=== PATIENT | female | born 1955 | race American Indian/Alaskan Native ===

== ENCOUNTER 2017-05-31 08:28 | Day surgery (SDC) | payer MEDICARE ==
[~2017-05-31 08:28] MED LIST: ANCEF/STERILE WATER 2 GM/20 ML 2 GM/20 ML SYRINGE IV NR; NACL 0.9% 1000 ML 1,000 ML IV SCH
--- NOTE | 2017-05-31 09:53 | Anesthesia Day of Surgery ---
Anesthesia Day of Surgery - Day of Surgery Patient Examined: Yes Patient H&P Reviewed: Yes Patient is NPO: Yes
--- NOTE | 2017-05-31 09:53 | Anesthesia Consultation ---
Anesthesia Consult and Med Hx Date of service: 05/31/17 - Airway Anesthetic Teeth Evaluation: Good, Partials (upper and lower) ROM Head & Neck: Adequate Mental/Hyoid Distance: Adequate Mallampati Class: Class II Intubation Access Assessment: Probably Good - Pulmonary Exam CTA: Yes - Cardiac Exam Cardiac Exam: RRR - Pre-Operative Health Status ASA Pre-Surgery Classification: ASA4 Proposed Anesthetic Plan: General - Pulmonary Hx Smoking: No Hx Asthma: No - Cardiovascular System Hx Hypertension: Yes - Central Nervous System Hx Psychiatric Problems: No - Endocrine Hx Renal Disease: Yes (last HD wednesday, T/T/S) Hx End Stage Renal Disease: Yes - Hematic Hx Anemia: Yes - Other Systems Hx Alcohol Use: Yes (occas) Hx Cancer: Yes (Myeloma, taking chemo every other Wednesday) Hx Obesity: No
[2017-05-31] MEDS ORDERED: VERSED IV NR (10:00)
[2017-05-31] MEDS ORDERED: PEPCID PO NR (10:00)
[2017-05-31] MEDS ORDERED: NACL BACTERIOSTATIC INFILTRATI ONE (10:12)
[2017-05-31 10:46] LABS: Basophils % (Auto) 0.6 % (0.0-1.8); Eosinophils % (Auto) 1.1 % (0.0-4.3); Hematocrit 37.7 % (30.3-42.9); Hemoglobin 11.7 gm/dl (10.1-14.3); Lymphocytes # (Auto) 0.7 K/mm3 (1.2-5.4); Lymphocytes % (Auto) 15.1 % (13.4-35.0); Mean Corpuscular HGB Conc 31 % (30-34); Mean Corpuscular Hemoglobin 30 pg (28-32); Mean Corpuscular Volume 96 fl (79-97); Monocytes # (Auto) 0.4 K/mm3 (0.0-0.8); Monocytes % (Auto) 8.6 % (0.0-7.3); Platelet Count 107 K/mm3 (140-440); Red Blood Count 3.92 M/mm3 (3.65-5.03)
[2017-05-31 10:47] LABS: Red Cell Distribution Width 20.9 % (13.2-15.2)
[2017-05-31 11:46] LABS: Calcium 9.2 mg/dL (8.4-10.2)
[2017-05-31] MEDS ORDERED: XYLOCAINE 2%/ EPI 1:200,000 INFILTRATI ONE (16:31)
[2017-05-31] MEDS ORDERED: HEPARIN 10,000 UNITS/10 ML ONE ×2 (16:32→18:48)
[2017-05-31] MEDS ORDERED: NACL 0.9% 500 ML 500 ML ONE (16:32)
[2017-05-31] MEDS ORDERED: SODIUM BICARBONATE ONE (16:33)
[2017-05-31] MEDS ORDERED: DIPRIVAN 10 MG/ML IV ONE (17:32)
[2017-05-31] MEDS ORDERED: XYLOCAINE MPF 2% ONE (17:32)
[2017-05-31] MEDS ORDERED: ZOFRAN ONE ×2 (17:32→20:21)
[2017-05-31] MEDS ORDERED: DECADRON ONE (17:32)
[2017-05-31] MEDS ORDERED: DILAUDID ONE (17:33)
[2017-05-31] MEDS ORDERED: HEPARIN 10,000 UNITS/10 ML IV ONE (17:40)
[2017-05-31] MEDS ORDERED: NACL 0.9% 500 ML IV ONE (17:40)
[2017-05-31] MEDS ORDERED: XYLOCAINE 1% 20 mL INFILTRATI ONE (17:40)
[2017-05-31] MEDS ORDERED: ePHEDrine SULFATE ONE (18:48)
[2017-05-31] MEDS ORDERED: NACL 0.9% 1000 ML 1,000 ML ONE (19:00)
[2017-05-31] MEDS ORDERED: MARCAINE 0.5% 30 ML INFILTRATI ONE (19:06)
--- NOTE | 2017-05-31 19:38 | Operative Report ---
Operative Report Operative Report: Operative note: Date: 05/31/2017 Preoperative diagnosis: Endstage renal disease Postoperative diagnosis: Same. Operation: creation of left proximal radiocephalic AV fistula Surgeon: Luz Maria Galindo. Asst.: Beck Mireles Anesthesia: Gen. EBL: Minimal Findings: High bifurcation of brachial artery Indications: 61-year-old lady with end-stage renal disease currently on hemodialysis there right sided IJ PermCath was needing permanent AV axis placement. Patient was explained all risks, benefits and alternatives of procedure. She chose to proceed and signed informed consent. Operative details: The ultrasound was performed identifying cephalic vein. It was compressible is good size throughout its length from the wrist level. Timeout performed. Incision was made in a transverse fashion 1 cm below elbow crease on the left side. Initially we dissected around cephalic vein mobilizing it, then dissected was changed to brachial artery dissection. There was identified high bifurcation of brachial artery. It was branching into radial artery, ulnar artery. All of those were dissected and taken on vessel loops for proximal and distal control. Cephalic vein was transected distally and was likely this sterile silk. It was irrigated with heparinized saline with olive-tipped syringe. Patient was heparinozed. Distal and proximal control was gained. Arteriotomy was created with 11 blade and extended with Stubbs scissors. Anastomosis to radial arterial branch was created was running 6-0 Prolene. When the artery was unclamped was identified with arterial pulse and thrill in the cephalic vein. There was palpable radial pulse. Hemostasis was achieved with electrocautery and wound was closed in 2 layers with 3-0 Vicryl and 4-0 Monocryl. Dermabond glue applied. Needle and sponge counts were correct 2. Patient tolerated procedure well and was transferred to PACU in stable condition.
--- NOTE | 2017-05-31 19:43 | Short Stay Summary ---
Short Stay Documentation Date of service: 05/31/17 - History H&P: obtained from office - Allergies and Medications Current Medications: Allergies No Known Allergies Allergy (Verified 05/28/17 12:01) Home Medications Medication Instructions Recorded Confirmed Last Taken Type Amlodipine Besylate [Norvasc] 2.5 mg PO DAILY 05/27/17 05/31/17 05/30/17 09:15 History Vit B Comp C/Folic Acid/Vit D3 1 each PO DAILY 05/27/17 05/31/17 05/30/17 History [Dialyvite 800 Plus D Wafer] Active Medications Famotidine (Pepcid) 20 mg PO PREOP NR Stop: 05/31/17 23:59 Last Admin: 05/31/17 10:25 Dose: 20 mg Cefazolin Sodium (Ancef/Sterile Water 2 Gm/20 Ml) 2 gm in 20 mls @ 80 mls/hr IV PREOP NR PRN Reason: Protocol Stop: 05/31/17 21:00 Sodium Chloride (Nacl 0.9% 1000 Ml) 1,000 mls @ 42 mls/hr IV DIRECT KEE Last Admin: 05/31/17 10:35 Dose: 42 mls/hr Midazolam HCl (Versed) 2 mg IV PREOP NR Stop: 05/31/17 23:59 Last Admin: 05/31/17 11:00 Dose: 2 mg - Brief post op/procedure progress note Date of procedure: 05/31/17 Pre-op diagnosis: end-stage renal disease Post-op diagnosis: same Procedure: Creation of left proximal radiocephalic AV fistula Anesthesia: GETA Findings: High bifurcation of brachial artery Surgeon: LARRY PACK Appliquer Zigzag: KELLY ESCOBEDO Estimated blood loss: minimal Condition: stable - Disposition Condition at discharge: Good Disposition: DC-01 TO HOME OR SELFCARE Short Stay Discharge Plan Diet: renal Wound: open to air Special Instructions: no heavy lifting Follow up with: JERZY ALVAREZ MD [Primary Care Provider] - 7 Days LARRY PACK DO [Staff Physician] - 14 Days Prescriptions: Acetaminophen/Codeine [Tylenol /Codeine # 3 tab] 1 tab PO Q6H PRN #20 tab PRN Reason: Pain
[2017-05-31] MEDS ORDERED: ZOFRAN IV ONE (20:15)
[2017-05-31 21:02] VITALS: BP 158/96
--- NOTE | 2017-05-31 22:08 | Post Anesthesia Evaluation ---
- Post Anesthesia Evaluation Patient Participated: Yes Airway Patent: Yes Stable Respiratory Function: Yes Nausea/Vomiting: No Temp > 96.8F: Yes Pain Manageable: Yes Adequeate Hydration: Yes Anesthesia Complications: No Block Receding Appropriately: Not Applicable Patient on Ventilator: No
== END 2017-05-31 22:05 | disposition home or self-care (01) ==
LOC: OR 08:28
PROVIDERS: ATTEND Surgery Vascular Surgery
DX: I12.0 Hypertensive chronic kidney disease with stage 5 chronic kidney disease or end stage renal disease (principal); N18.6 End stage renal disease; Z85.89 Personal history of malignant neoplasm of other organs and systems
CPT/HCPCS: 36415; 36821; 80048; 85025; J0690; J1100; J1170; J1644; J2250; J2405; J2704; J7030; J7040